=== PATIENT | female | born 1990 | race Caucasian/White ===

== ENCOUNTER 2018-01-21 12:01 | Inpatient (IN) | payer OTHER ==
[~2018-01-21 12:01] MED LIST: SUCCINYLCHOLINE CHLORIDE 100 MG/5 ML SYG IV
[2018-01-21] MEDS ORDERED: IPRATROPIUM (NEB) 0.5 MG/2.5 ML AMP HHN (14:30)
[2018-01-21] MEDS ORDERED: ALBUTEROL 0.083% (NEB) 2.5 MG/3 ML AMP HHN (14:30)
[2018-01-21] MEDS ORDERED: FENTAnyl 50 MCG/ML VIAL IV ×2 (14:30)
[2018-01-21] MEDS ORDERED: MIDAZOLAM 1 MG/ML 2 ML INJ IV (14:30)
[2018-01-21] MEDS ORDERED: EPHEDrine SULFATE 50 MG/5 ML SYG IV (14:30)
[2018-01-21] MEDS ORDERED: HYDROmorphONE 1 MG/5 ML IV SYRINGE IV (14:30)
[2018-01-21] MEDS ORDERED: LABETALOL HCL 20MG INJ IV (14:30)
[2018-01-21] MEDS ORDERED: OXYCODONE/ACETAMINOPHEN (5/325) TAB PO ×2 (14:30)
[2018-01-21] MEDS ORDERED: hydrALAzine 20 MG INJ IV (14:30)
[2018-01-21] MEDS ORDERED: TRIMETHOBENZAMIDE 100 MG/ML VIAL IM (14:30)
[2018-01-21] MEDS ORDERED: DIPHENHYDRAMINE 50 MG INJ IV (14:30)
[2018-01-21] MEDS ORDERED: NEOSTIGMINE 3 MG/3 ML SYRINGE (14:38)
[2018-01-21] MEDS ORDERED: ROCURONIUM 50 MG INJ (14:38)
[2018-01-21] MEDS ORDERED: GLYCOPYRROLATE 0.4 MG INJ (14:38)
[2018-01-21] MEDS ORDERED: CEFAZOLIN 1 GM INJ (14:38)
[2018-01-21] MEDS ORDERED: PROPOFOL 20 ML (14:38)
[2018-01-21] MEDS ORDERED: FENTAnyl 50 MCG/ML VIAL (14:39)
[2018-01-21] MEDS ORDERED: DEXAMETHASONE 4 MG/ML 1 ML INJ (14:39)
[2018-01-21] MEDS ORDERED: MIDAZOLAM 1 MG/ML 2 ML INJ (14:39)
[2018-01-21] MEDS ORDERED: ONDANSETRON 4 MG INJ (14:39)
[2018-01-21] MEDS ORDERED: ROPIVACAINE 0.5 % 30 ML VIAL ×2 (14:40→14:54)
[2018-01-21] MEDS ORDERED: KETOROLAC 30 MG INJ (15:31)
[2018-01-21] MEDS: POLYMYXIN/BACITRACIN 1L IRRIG (15:36)
[2018-01-21] MEDS ORDERED: METOCLOPRAMIDE 10 MG INJ (16:53)
[2018-01-21] MEDS: HYDROmorphONE 1 MG/5 ML IV SYRINGE IV ×2 (17:22→17:28)
[2018-01-21] MEDS ORDERED: NACL 0.9% 3 ML SYG IV (17:30)
[2018-01-21] MEDS: MEPERIDINE 25 MG INJ IV (17:37)
[2018-01-21] MEDS: CEFAZOLIN 1 GM/50 ML (PMX) 50 ML IVPB (17:49)
[2018-01-21] MEDS: FENTAnyl 50 MCG/ML VIAL IV (17:54)
[2018-01-21] MEDS: ONDANSETRON 4 MG INJ IV (18:06)
[2018-01-21] MEDS: SOD CHLORIDE 0.9% 1,000 ML IV (18:06)
[2018-01-22] MEDS: HYDROCODONE/APAP (5/325) TAB PO ×5 (00:56→20:36)
[2018-01-22] MEDS: CEFAZOLIN 1 GM/50 ML (PMX) 50 ML IVPB ×2 (01:11→08:35)
[2018-01-22] MEDS: SOD CHLORIDE 0.9% 1,000 ML IV ×3 (03:21→16:47)
[2018-01-22] MEDS: ASPIRIN (EC) 325 MG TAB PO (08:35)
[2018-01-22] MEDS: morphine 4 MG/ML VIAL IV ×4 (09:33→21:14)
[2018-01-22] MEDS: DOCUSATE SODIUM 100 MG CAP PO (20:37)
[2018-01-22] MEDS: HYDROmorphONE 1 MG/ML SYG IV (22:44)
[2018-01-23] MEDS: morphine 4 MG/ML VIAL IV ×6 (00:31→21:03)
[2018-01-23] MEDS: HYDROCODONE/APAP (5/325) TAB PO ×5 (03:44→23:49)
[2018-01-23 05:01] LABS: ADD MAN DIFF? NO
[2018-01-23 05:02] LABS: BASOPHIL # 0.1 10^3/ul (0.0-0.1); BASOPHILS % 0.5 % (0.0-2.0); EOSINOPHILS # 0.1 10^3/ul (0.0-0.5); EOSINOPHILS % 1.1 % (0.0-7.0); HEMOGLOBIN 8.3 g/dl (12.0-16.0); LYMPHOCYTES # 2.5 10^3/ul (0.8-2.9); LYMPHOCYTES % 27.3 % (15.0-51.0); MEAN CORPUSCULAR HEMOGLOBIN 22.1 pg (29.0-33.0); MEAN CORPUSCULAR HGB CONC 29.6 g/dl (32.0-37.0); MEAN CORPUSCULAR VOLUME 74.7 fl (82.0-101.0); MONOCYTE # 0.8 10^3/ul (0.3-0.9); MONOCYTES % 8.2 % (0.0-11.0); NEUTROPHIL # 5.7 10^3/ul (1.6-7.5); NEUTROPHILS % 62.6 % (39.0-77.0); PLATELET COUNT 226 10^3/UL (140-415); RED BLOOD COUNT 3.75 10^6/ul (4.20-5.40); RED CELL DISTRIBUTION WIDTH 16.2 % (11.5-14.5)
[2018-01-23 05:02] LABS: WHITE BLOOD COUNT 9.2 10^3/ul (4.8-10.8)
[2018-01-23 05:25] LABS: ANION GAP 8 (8-16); BLOOD UREA NITROGEN 11 mg/dl (7-20); CALCIUM 8.2 mg/dl (8.4-10.2); CARBON DIOXIDE 28 mmol/L (21-31); CHLORIDE 107 mmol/L (97-110); CREATININE 0.49 mg/dl (0.44-1.00); GLUCOSE 100 mg/dl (70-220); POTASSIUM 3.8 mmol/L (3.5-5.1); SODIUM 139 mmol/L (135-144)
[2018-01-23 05:27] LABS: MAGNESIUM 1.9 mg/dl (1.7-2.5)
[2018-01-23 05:27] LABS: PHOSPHORUS 3.2 mg/dl (2.5-4.9)
[2018-01-23] MEDS: SOD CHLORIDE 0.9% 1,000 ML IV (06:00)
[2018-01-23] MEDS: ASPIRIN (EC) 325 MG TAB PO (08:52)
[2018-01-23] MEDS: DOCUSATE SODIUM 100 MG CAP PO (08:52)
[2018-01-23] MEDS: KETOROLAC 30 MG INJ IV ×2 (08:53→16:01)
[2018-01-23] MEDS: SOD FERRIC GLUC COMPLX 125 MG in SOD CHLORIDE 0.9% 100 ML IVPB (17:52)
[2018-01-23] MEDS: CHOLECALCIFEROL 2,000 UNIT CAP PO (17:52)
[2018-01-23] MEDS: LUBIPROSTONE 8 MCG CAPSULE PO (21:04)
[2018-01-24] MEDS: morphine 4 MG/ML VIAL IV ×6 (01:16→23:10)
[2018-01-24] MEDS: HYDROCODONE/APAP (5/325) TAB PO ×5 (03:39→20:15)
[2018-01-24 05:16] LABS: ADD MAN DIFF? NO
[2018-01-24 05:19] LABS: BASOPHIL # 0.1 10^3/ul (0.0-0.1); BASOPHILS % 0.7 % (0.0-2.0); EOSINOPHILS # 0.1 10^3/ul (0.0-0.5); EOSINOPHILS % 1.4 % (0.0-7.0); HEMATOCRIT 32.2 % (37.0-47.0); HEMOGLOBIN 9.4 g/dl (12.0-16.0); LYMPHOCYTES # 2.7 10^3/ul (0.8-2.9); LYMPHOCYTES % 29.1 % (15.0-51.0); MEAN CORPUSCULAR HGB CONC 29.2 g/dl (32.0-37.0); MEAN CORPUSCULAR VOLUME 75.2 fl (82.0-101.0); MEAN PLATELET VOLUME 10.8 fl (7.4-10.4); MONOCYTE # 0.8 10^3/ul (0.3-0.9); MONOCYTES % 8.3 % (0.0-11.0); NEUTROPHIL # 5.5 10^3/ul (1.6-7.5); NEUTROPHILS % 59.7 % (39.0-77.0); PLATELET COUNT 260 10^3/UL (140-415); RED BLOOD COUNT 4.28 10^6/ul (4.20-5.40); RED CELL DISTRIBUTION WIDTH 16.1 % (11.5-14.5)
[2018-01-24 05:19] LABS: WHITE BLOOD COUNT 9.1 10^3/ul (4.8-10.8)
[2018-01-24 05:37] LABS: ANION GAP 7 (8-16); BLOOD UREA NITROGEN 10 mg/dl (7-20); CALCIUM 8.7 mg/dl (8.4-10.2); CARBON DIOXIDE 31 mmol/L (21-31); CHLORIDE 104 mmol/L (97-110); CREATININE 0.52 mg/dl (0.44-1.00); GLUCOSE 96 mg/dl (70-220); POTASSIUM 4.2 mmol/L (3.5-5.1); SODIUM 138 mmol/L (135-144)
[2018-01-24] MEDS: LUBIPROSTONE 8 MCG CAPSULE PO ×2 (08:19→20:19)
[2018-01-24] MEDS: ASPIRIN (EC) 325 MG TAB PO (08:20)
[2018-01-24] MEDS: CHOLECALCIFEROL 2,000 UNIT CAP PO (08:20)
[2018-01-24] MEDS: KETOROLAC 30 MG INJ IV (10:21)
[2018-01-24] MEDS: SOD FERRIC GLUC COMPLX 125 MG in SOD CHLORIDE 0.9% 100 ML IVPB (16:44)
[2018-01-24 17:21] LABS: ADD UMIC NO; UR ASCORBIC ACID NEGATIVE (NEGATIVE); UR BILIRUBIN (Dip) NEGATIVE (NEGATIVE); UR BLOOD (Dip) NEGATIVE (NEGATIVE); UR CLARITY CLEAR (CLEAR); UR COLOR YELLOW (YELLOW); UR GLUCOSE (Dip) NEGATIVE (NEGATIVE); UR KETONES (Dip) NEGATIVE (NEGATIVE); UR LEUKOCYTE ESTERASE (Dip) NEGATIVE Leu/ul (NEGATIVE); UR NITRITE (Dip) NEGATIVE (NEGATIVE); UR TOTAL PROTEIN (Dip) NEGATIVE (NEGATIVE); UR UROBILINOGEN (Dip) NEGATIVE (NEGATIVE)
[2018-01-24] MEDS: DOCUSATE SODIUM 100 MG CAP PO (20:18)
[2018-01-24] MEDS: MICONAZOLE 200 MG VAG SUPP VAG (20:19)
[2018-01-25] MEDS: HYDROCODONE/APAP (5/325) TAB PO ×7 (00:08→22:30)
[2018-01-25] MEDS: KETOROLAC 30 MG INJ IV (00:13)
[2018-01-25] MEDS: morphine 4 MG/ML VIAL IV ×4 (01:28→13:45)
[2018-01-25] MEDS: ASPIRIN (EC) 325 MG TAB PO (08:20)
[2018-01-25] MEDS: LUBIPROSTONE 8 MCG CAPSULE PO ×2 (08:20→20:20)
[2018-01-25] MEDS: CHOLECALCIFEROL 2,000 UNIT CAP PO (08:20)
[2018-01-25] MEDS: POLYETHYLENE GLYCOL 17 GM PACKET PO (10:42)
[2018-01-25] MEDS: DOCUSATE SODIUM 100 MG CAP PO (10:43)
[2018-01-25] MEDS: SOD FERRIC GLUC COMPLX 125 MG in SOD CHLORIDE 0.9% 100 ML IVPB (17:35)
[2018-01-25] MEDS: IBUPROFEN 400 MG TAB PO (17:40)
[2018-01-25] MEDS: MICONAZOLE 200 MG VAG SUPP VAG (20:33)
[2018-01-26] MEDS: IBUPROFEN 400 MG TAB PO ×2 (01:09→08:42)
[2018-01-26] MEDS: HYDROCODONE/APAP (5/325) TAB PO ×4 (01:33→13:14)
[2018-01-26] MEDS: morphine 4 MG/ML VIAL IV (07:26)
[2018-01-26] MEDS: CHOLECALCIFEROL 2,000 UNIT CAP PO (07:30)
[2018-01-26] MEDS: ASPIRIN (EC) 325 MG TAB PO (07:30)
[2018-01-26] MEDS: DOCUSATE SODIUM 100 MG CAP PO (07:30)
[2018-01-26] MEDS: LUBIPROSTONE 8 MCG CAPSULE PO (07:31)
[2018-01-26] MEDS: POLYETHYLENE GLYCOL 17 GM PACKET PO (07:47)
[2018-01-26] MEDS: traMADol 50 MG TAB PO (14:35)
== END 2018-01-26 16:25 | disposition home or self-care (01) | DRG 494 ==
LOC: REC 12:01 → MS1 18:40
PROVIDERS: Internal Medicine Nephrology
PROC: 0QSJ04Z Reposition Right Fibula with Internal Fixation Device, Open Approach (ICD-10-PCS; principal; 2018-01-21 14:44)
PROC: 0QSG04Z Reposition Right Tibia with Internal Fixation Device, Open Approach (ICD-10-PCS; 2018-01-21 14:44)
DX: S82.851A Displaced trimalleolar fracture of right lower leg, initial encounter for closed fracture (principal); E66.9 Obesity, unspecified; Z68.35 Body mass index [BMI] 35.0-35.9, adult; Y92.410 Unspecified street and highway as the place of occurrence of the external cause; X58.XXXA Exposure to other specified factors, initial encounter; K59.00 Constipation, unspecified; D50.9 Iron deficiency anemia, unspecified
CPT/HCPCS: 73600; 73610-RT; 80048; 81003; 83735; 84100; 84703; 85025; 87086; 97110; 97116; 97161; 97530

== ENCOUNTER 2018-01-27 23:45 | Emergency (ER) | payer OTHER ==
[2018-01-28 00:46] LABS: WHITE BLOOD COUNT 9.8 10^3/ul (4.8-10.8)
[2018-01-28 00:46] LABS: ADD MAN DIFF? NO; BASOPHILS % 0.4 % (0.0-2.0); EOSINOPHILS # 0.1 10^3/ul (0.0-0.5); EOSINOPHILS % 1.3 % (0.0-7.0); HEMATOCRIT 34.4 % (37.0-47.0); HEMOGLOBIN 10.4 g/dl (12.0-16.0); LYMPHOCYTES # 1.8 10^3/ul (0.8-2.9); LYMPHOCYTES % 18.7 % (15.0-51.0); MEAN CORPUSCULAR HEMOGLOBIN 22.4 pg (29.0-33.0); MEAN CORPUSCULAR HGB CONC 30.2 g/dl (32.0-37.0); MEAN CORPUSCULAR VOLUME 74.1 fl (82.0-101.0); MEAN PLATELET VOLUME 10.6 fl (7.4-10.4); MONOCYTE # 0.9 10^3/ul (0.3-0.9); MONOCYTES % 8.7 % (0.0-11.0); NEUTROPHIL # 6.8 10^3/ul (1.6-7.5); NEUTROPHILS % 69.8 % (39.0-77.0); PLATELET COUNT 302 10^3/UL (140-415); RED BLOOD COUNT 4.64 10^6/ul (4.20-5.40); RED CELL DISTRIBUTION WIDTH 17.7 % (11.5-14.5)
[2018-01-28] MEDS: morphine 4 MG/ML VIAL IV (00:48)
[2018-01-28] MEDS: SOD CHLORIDE 0.9% 1,000 ML IV (00:48)
[2018-01-28] MEDS: FAMOTIDINE 20 MG INJ IV (00:48)
[2018-01-28] MEDS: ONDANSETRON 4 MG INJ IV (00:48)
[2018-01-28 01:08] LABS: ALANINE AMINOTRANSFERASE 370 IU/L (13-69); ALBUMIN 3.5 g/dl (3.3-4.9); ALBUMIN/GLOBULIN RATIO 0.94; ALKALINE PHOSPHATASE 103 IU/L (42-121); ANION GAP 11 (8-16); ASPARTATE AMINO TRANSFERASE 353 IU/L (15-46); BILIRUBIN,INDIRECT 0.2 mg/dl (0-1.1); BILIRUBIN,TOTAL 0.2 mg/dl (0.2-1.3); BLOOD UREA NITROGEN 17 mg/dl (7-20); CALCIUM 9.4 mg/dl (8.4-10.2); CARBON DIOXIDE 27 mmol/L (21-31); CHLORIDE 102 mmol/L (97-110); CREATININE 0.49 mg/dl (0.44-1.00); GLUCOSE 101 mg/dl (70-220); LIPASE 41 U/L (23-300); POTASSIUM 4.2 mmol/L (3.5-5.1); SODIUM 136 mmol/L (135-144); TOTAL PROTEIN 7.2 g/dl (6.1-8.1)
== END 2018-01-28 02:57 | disposition home or self-care (01) ==
LOC: E/R 23:45
DX: G89.18 Other acute postprocedural pain (principal); K29.70 Gastritis, unspecified, without bleeding; R74.0 Nonspecific elevation of levels of transaminase and lactic acid dehydrogenase [LDH]
CPT/HCPCS: 36415; 80053; 81025; 83690; 85025; 96374; 96375; 99284-25